=== PATIENT | female | born 1960 | race Caucasian/White ===

== ENCOUNTER → 2019-05-05 | Outpatient (CLI) | payer OTHER ==
[~2019-05-05] MED LIST: ADALAT CC60 MG PO; BACTRIM DS TAB1 EACH PO; CHOLESTYRAMINE R5 GM; DOXYCYCLINE 10100 MG PO; NAPROSYN500 MG PO; NORCO 5-325 TA1 EACH PO; PHENAZOPYRIDIN200 M2 PO; VALTREX 500 MG500 M1 PER TUBE
== END ==
LOC: CAT 08:00
DX: Z13.6 Encounter for screening for cardiovascular disorders (principal); I25.10 Atherosclerotic heart disease of native coronary artery without angina pectoris; E78.00 Pure hypercholesterolemia, unspecified